=== PATIENT | male | born 1960 | race Hispanic/Latino ===

== ENCOUNTER 2018-09-14 08:47 | Outpatient (CLI) | payer BC ==
[2018-09-14] MEDS ORDERED: Iopamidol 370 76% 100 ML VIAL ONE (10:43)
--- NOTE | 2018-09-14 11:59 | CT ---
CT CHEST, ABDOMEN AND PELVIS WITH IV CONTRAST: 09/14/18 Multiple axial tomograms were obtained through the chest, abdomen and pelvis with IV enhancement. Ora l contrast was administered. INDICATIONS: History of rectal cancer. Elevated CEA. COMPARISON: Comparison made to CT abdomen and pelvis 07/17/13. CORRELATION: Correlation made to PET scan 07/23/13. CT CHEST: There is a small calcified nodule in the anterior right upper lobe, mid lung field. No other pulmonar y mass or nodule. No infiltrate. No effusion. Mediastinum unremarkable. Thyroid unremarkable. No axi llary adenopathy. Osseous structures unremarkable. IMPRESSION: Unremarkable chest CT. CT ABDOMEN AND PELVIS: There is heterogeneity within the left lobe of the liver which is suspicious. A discrete or defined m ass is not identified; however, there is rather diffuse heterogeneity with areas of low attenuation i n the left lobe concerning for metastatic involvement. Since this could potentially represent areas of fatty sparing, suggest further evaluation with MRI abdomen with attention to the liver. Spleen and pancreas unremarkable. Adrenal glands normal. Kidneys unremarkable. A cyst from the superior left kidney is stable from the prior exam. Kidneys oth erwise unremarkable. Review of the small bowel reveals a loop of abnormal small bowel in the lower abdomen located in the upper pelvis region. This is a focally dilated/patulous loop of small bowel measuring up to 5 cm diam eter. There is fecalization of the content within this patulous loop of bowel. The small bowel leadin g into and out of this apparent patulous loop appears normal. There is no evidence of obstruction. Ho wever, this is an abnormal focal loop of small bowel. This was not present on the 2014 exam. There is scattered stool and gas throughout the colon which appears unremarkable. The sigmoid colon i s decompressed. The rectosigmoid appears unremarkable. The prostate is mildly enlarged with prostatic calcification. The urinary bladder is contacted and not well evaluated. Aorta shows atherosclerotic calcification but normal caliber. No evidence of retroperitoneal or para- aortic adenopathy. No evidence of pelvic adenopathy. Osseous structures are unremarkable. IMPRESSION: 1. There is heterogeneity of the left lobe of the liver. A defined mass is not seen; however, th e heterogeneity is concerning given the history of rectal cancer. Recommend further evaluation with M RI abdomen with and without contrast following hepatic protocol. 2. There is an abnormal focal loop of what appears to be patulous small bowel in the lower abdo men/upper pelvis measuring 5 to 6 cm. there is fecalization within this patulous loop of bowel as susan cribed above. There is no evidence of mural thickening or inflammation at this time. POS: ALISIA
== END 2018-09-14 08:48 | disposition home or self-care (01) ==
LOC: CT 08:47
PROVIDERS: ATTEND Internal Medicine Hematology & Oncology
DX: C20 Malignant neoplasm of rectum (principal); K76.89 Other specified diseases of liver
CPT/HCPCS: 71260; 74177; 82565; Q9967

== ENCOUNTER 2018-09-25 12:51 | Outpatient (CLI) | payer BC ==
--- NOTE | 2018-09-25 14:36 | PET ---
PET W CT Skull to Mid Thigh History: Rectal cancer. C 20. Subsequent encounter. Comparison: CT chest, abdomen, and pelvis September 14, 2018 Findings: PET imaging was performed from the skull to the mid thigh after the intravenous administrat ion of 11.6 mCi FDG. Within the left lobe of the liver involving hepatic segments II and III is a mass measuring approxima tely 6 cm in greatest dimension with SUV max 14.36. Within the right lobe of the liver hepatic segment 8 near the dome is a smaller mass measuring 2.5 cm in greatest dimension with SUV max 5.8. Subtle increased FDG avidity distal small bowel near the anastomosis. No evidence for pulmonary hepat ic disease. Lungs are clear. No pneumothorax. No effusion. No cardiomegaly. Simple cyst superior pole left kidney. No hydronephrosis. Noncontrast evaluation of the pancreas and spleen are unremarkable. No acute osseous abnormality. Impression: Multifocal hepatic metastatic disease as described with index lesion measuring up to 6 cm in greatest dimension within segment II/III.
--- NOTE | 2018-09-25 15:43 | MRI ---
MRI Abdomen W WO Con History: Metastasis Comparison: PET CT same day Findings: Within hepatic segment 8 near the dome of the mass measures 3.1 cm in size with central art erial hyperenhancement and washout with central necrosis. Within hepatic segment 2/3 is a mass measuring up to 6 cm in size with fine internal linear enhancement and peripheral enhancement. There is a peripheral halo of increased enhancement. No other foci of abnormal enhancement within the liver. Portal vein is patent. Hepatic arteries paten t. No carrie hepatis adenopathy. No dilated loops of large or small bowel in the upper abdomen. Marrow signal is normal. Spleen and pancreas unremarkable. Superior left renal simple cysts. Aortic contour is nonaneurysmal. No marrow infiltrative process. Impression: 1. Multifocal hepatic masses involving hepatic segments II/III and hepatic segment VIII. Index lesion s are described. Measurements on the MRI are more accurate than the PET/CT. 2. Metastatic disease is felt more likely than hepatocellular carcinoma given the absence of liver ci rrhosis or hepatocellular disease. There are also differing enhancement patterns between the different masses. 3. Multifocal cholangiocarcinoma is also felt less likely given its rarity to be multifocal. 4. Mass within hepatic segment II/III is amenable to percutaneous biopsy.
== END 2018-09-25 12:52 | disposition home or self-care (01) ==
LOC: PET 12:51
PROVIDERS: ATTEND Internal Medicine Hematology & Oncology
DX: C20 Malignant neoplasm of rectum (principal); C78.7 Secondary malignant neoplasm of liver and intrahepatic bile duct; R16.0 Hepatomegaly, not elsewhere classified
CPT/HCPCS: 74183; 78815; 82565; A9552

== ENCOUNTER 2018-10-01 08:16 | Day surgery (SDC) | payer BC ==
[2018-09-28 14:22] VITALS: BMI 31.1
[2018-10-01 08:33] LABS: #Eosinphils 0.3 thou/uL (0.0-0.7); #Lymphocytes 2.4 thou/uL (1.20-3.40); #Monocytes 0.5 thou/uL (0.11-0.59); #Neutrophils 4.6 thou/uL (1.40-6.50); %Basophils 0.2 % (0.0-1.0); %Eosinophils 3.6 % (0.0-10.0); %Monocytes 6.5 % (0.0-10.0); %Neutrophils 58.8 % (42.0-75.0); Hemoglobin 14.4 g/dL (14.0-18.0); Mean Corpuscular HGB CONC 33.1 g/dL (32.0-36.0); Mean Corpuscular Hemoglobin 28.3 pg (27.0-31.0); Mean Corpuscular Volume 85.4 fL (78.0-98.0); Mean Platelet Volume 6.8 fL (7.4-10.4); Platelet Count 284 thou/uL (130-400); Red Blood Cell (RBC) Count 5.08 mill/uL (4.70-6.10); White Blood Cell (WBC) Count 7.8 thou/uL (4.8-10.8)
[2018-10-01 08:36] LABS: INR-International Normal Ratio 0.9; PTT 27.5 SEC (22.9-36.1); Prothrombin Time 11.9 SEC (12.0-14.7)
[2018-10-01 11:30] VITALS: BP 162/90; TEMP 97.5
--- NOTE | 2018-10-01 13:55 | CT ---
EXAM: CT Liver Perc Biopsy PROVIDED CLINICAL HISTORY: Patient with history of colon cancer. Patient has masses within the left hepatic lobe. Biopsy was req uested. COMPARISON: CT abdomen on 09/14/2018 as well as PET/CT examination and MRI of the abdomen on 09/25/2018. TECHNIQUE: The procedure including the risks and complications were explained to the patient, and informed conse nt was obtained. Patient was placed on the CT scan table in the supine position. Limited noncontrasted CT scan was obtained through the liver with grid localizer in place. An area just to th e right of midline at the level of the lower aspect of the sternum was marked. This area was meticulously prepped and draped in usual sterile fashion. Small skin incision was made. A 17-gauge guide needle was advanced followed by noncontrasted axial CT images. This was repeated unt il the tip of the needle was placed at the peripheral margin of the left hepatic lobe hypodense lesion/mass. A single 18-gauge core needle biopsy specimen was obtained utilizing coaxial technique. Initial touch prep results indicated atypical cells. An additional biopsy specimen was not obtained due to bleeding at the site and from the needle. The introducer needle was slightly withdrawn and autologous clot was placed along the tract followed by a Gelfoam pledget. The needle was removed, and hemostasis was achieved with direct pressure. Follow-up CT scan examination does demonstrate small amount of increased density material anterior to the left hepatic lobe at site of biopsy related to a small amount of hemorrhage. Patient's vital signs remained stable during the procedure as well as postprocedure. Patient was transported to radio logy nurses holding area for further monitoring prior to discharge. IMPRESSION: Technically successful CT-guided percutaneous biopsy of a left hepatic lobe mass. Pathology results a re currently pending. Only a single biopsy specimen was obtained.
== END 2018-10-01 14:30 | disposition home or self-care (01) ==
LOC: CT 08:16
PROVIDERS: ATTEND Internal Medicine Hematology & Oncology
PROC: 0FD23ZX Extraction of Left Lobe Liver, Percutaneous Approach, Diagnostic (ICD-10-PCS; principal; 2018-10-01)
DX: C78.7 Secondary malignant neoplasm of liver and intrahepatic bile duct (principal); Z85.048 Personal history of other malignant neoplasm of rectum, rectosigmoid junction, and anus; Z91.041 Radiographic dye allergy status
CPT/HCPCS: 36415; 47000; 77012; 85025; 85610; 85730; 88307; 88333; 88341; 88342

== ENCOUNTER 2018-11-02 10:06 | Day surgery (SDC) | payer BC ==
[2018-11-01 10:52] VITALS: BMI 27.6
[2018-11-02] MEDS ORDERED: Midazolam HCl 2 mg/2 ml Vial ONE (11:26)
[2018-11-02] MEDS ORDERED: Bupivacaine/Epinephrine 0.25% 30 ML VIAL ONE (11:51)
[2018-11-02] MEDS ORDERED: Lidocaine 2% PF 5 ML VIAL ONE (11:51)
[2018-11-02] MEDS ORDERED: Fentanyl 100 MCG/2 ML VIAL ONE (12:01)
--- NOTE | 2018-11-02 13:07 | RAD ---
EXAM: Portable chest PROVIDED CLINICAL HISTORY: Mediport placement COMPARISON: 07/23/2005 FINDINGS: Cardiac and mediastinal silhouette is within normal limits. No focal consolidation, pleural fluid or pneumothorax evident. Interval placement of right IJ implanted port, the tip of which projects in the region of the SVC. IMPRESSION: No evidence for an acute cardiopulmonary process.
[2018-11-02] MEDS ORDERED: PROPOFOL 200 MG/20 ML VIAL ONE (15:46)
[2018-11-02] MEDS ORDERED: Dexamethasone 20 MG/5 ML VIAL ONE (15:46)
[2018-11-02] MEDS ORDERED: Ondansetron PF 4 MG/2 ML Vial ONE (15:46)
--- NOTE | 2018-11-05 10:18 | OP ---
DATE OF PROCEDURE: 11/02/2018 PREOPERATIVE DIAGNOSIS: Metastatic rectal cancer. POSTOPERATIVE DIAGNOSIS: Metastatic rectal cancer. PROCEDURE PERFORMED: Tunneled central line with subcutaneous port (MediPort CT injectable). ANESTHESIA: TIVA, local. ESTIMATED BLOOD LOSS: Minimal. COMPLICATIONS: None. SPECIMEN: None. DESCRIPTION OF PROCEDURE: The patient was taken to the operating room and laid supine on the operating room table after sedation was obtained. Bilateral neck and chest were prepped and draped in a sterile fashion. Local anesthetic was infiltrated over the right internal jugular vein. Internal jugular vein was cannulated using a 22-gauge finder needle, followed by a Seldinger needle. Wire was passed into the superior vena cava under fluoro guidance. A small naomie was made at the wire entrance site. A second 3 smear incisions were made in the right upper chest. Subcutaneous pocket was made below the lower incision. Tubing for the MediPort tunneled from the inferior to superior incision and suture sheath was placed over the wire into the superior vena cava under fluoro guidance. The dilator and wire were removed and the catheter sewn into the sheath as the sheath was peeled away. The tip of the catheter was at the atriocaval junction. MediPort tubing was cut to fit the MediPort at the lower incision, connected to the MediPort, which was sewn into the chest wall in the subcutaneous pocket using Prolene. The MediPort flushed and lubna blood without difficulty. It was flushed with a heparin flush. The wounds were all irrigated and closed using 3-0 Vicryl, 4-0 Monocryl, and Dermabond. The patient was sent to Recovery in stable condition. All instrument counts, needle counts, and lap counts were correct. Job ID: [id number]
== END 2018-11-02 14:05 | disposition home or self-care (01) ==
LOC: SDC 10:06
PROVIDERS: ATTEND Surgery
PROC: 05HM33Z Insertion of Infusion Device into Right Internal Jugular Vein, Percutaneous Approach (ICD-10-PCS; principal; 2018-11-02)
DX: C20 Malignant neoplasm of rectum (principal); Z91.041 Radiographic dye allergy status
CPT/HCPCS: 71045; 76000; C1788; J0690; J1100; J1642; J2001; J2250; J2405; J2704; J3010

== ENCOUNTER 2018-12-19 00:30 | Emergency (ER) | payer BC ==
[2018-12-19 01:54] LABS: #Lymphocytes 0.7 thou/uL (1.20-3.40); #Monocytes 0.5 thou/uL (0.11-0.59); #Neutrophils 7.2 thou/uL (1.40-6.50); %Basophils 0.2 % (0.0-1.0); %Eosinophils 0.2 % (0.0-10.0); %Lymphocytes 8.5 % (21.0-51.0); %Monocytes 5.3 % (0.0-10.0); %Neutrophils 85.8 % (42.0-75.0); Mean Corpuscular HGB CONC 34.8 g/dL (32.0-36.0); Mean Corpuscular Hemoglobin 29.4 pg (27.0-31.0); Mean Corpuscular Volume 84.6 fL (78.0-98.0); Mean Platelet Volume 6.6 fL (7.4-10.4); Platelet Count 177 thou/uL (130-400); RBC Distribution Width 14.5 % (11.5-14.5); Red Blood Cell (RBC) Count 4.74 mill/uL (4.70-6.10); White Blood Cell (WBC) Count 8.4 thou/uL (4.8-10.8)
[2018-12-19 02:16] LABS: ALT (SGPT) 51 U/L (8-55); AST (SGOT) 34 U/L (5-34); Albumin 3.6 g/dL (3.5-5.0); Alkaline Phosphatase 86 U/L (40-150); Anion Gap 12 mmol/L (10-20); BUN (Urea Nitrogen) 16 mg/dL (8.4-25.7); Bilirubin, Total 0.5 mg/dL (0.2-1.2); Calc. Creatinine Clearance 0 mL/min (70-130); Calcium 8.9 mg/dL (7.8-10.44); Carbon Dioxide 21 mmol/L (22-29); Chloride 106 mmol/L (98-107); Estimated GFR-MDRD Greater than 90; Globulin 2.7 g/dL (2.4-3.5); Glucose 138 mg/dL (70-105); Potassium 3.9 mmol/L (3.5-5.1); Protein, Total 6.3 g/dL (6.0-8.3); Sodium 135 mmol/L (136-145)
--- NOTE | 2018-12-23 03:16 | EKG ---
Test Reason : STROKE SYMPTOMS Blood Pressure : / mmHG Vent. Rate : 098 BPM Atrial Rate : 098 BPM P-R Int : 130 ms QRS Dur : 128 ms QT Int : 394 ms P-R-T Axes : 077 035 037 degrees QTc Int : 503 ms Normal sinus rhythm Right bundle branch block Abnormal ECG Confirmed by JOSE ARMANDO ATKINSON DO ([id number]), editorial specialist GLADYS MARTINEZ ([id number] on 12/23/2018 3:15:14 AM Referred By: [place] Confirmed By:JOSE ARMANDO ATKINSON DO
== END 2018-12-19 03:00 | disposition home or self-care (01) ==
LOC: ERS 00:30
DX: G62.9 Polyneuropathy, unspecified (principal); C20 Malignant neoplasm of rectum
CPT/HCPCS: 36415; 80053; 85025; 93005

== ENCOUNTER 2019-01-25 08:54 | Outpatient (CLI) | payer BC ==
--- NOTE | 2019-01-25 12:02 | PET ---
Radionucleotide PET scan with CT attenuation correction HISTORY: Malignant neoplasm of rectum. Secondary malignant neoplasm of liver. Restaging. FINDINGS: Physiologic uptake of radiotracer throughout the enteric system and along each urinary trac t. At the dome of the medial segment left liver lobe, a small hyperdense focus on the nondiagnostic CT a ttenuation correction images is present where a metastatic lesion was present on the prior study. Maximum SUV associated with this area is now 2.9 (previous QCLR 7.1) Within the lateral segment left liver lobe, the heterogeneous slightly hyperdense mass now shows a ma ximum SUV of 3.2 (previously 15.4). No new areas of abnormal uptake are apparent. Liver is diffusely hypodense. Postoperative changes of the colon. Degenerative changes lumbar spine. Calcification throughout the arterial structures. IMPRESSION: Complete response to therapy. No new abnormalities. Atherosclerosis. Hepatic steatosis.
== END 2019-01-25 08:55 | disposition home or self-care (01) ==
LOC: PET 08:54
PROVIDERS: ATTEND Internal Medicine Hematology & Oncology
DX: C20 Malignant neoplasm of rectum (principal); C78.7 Secondary malignant neoplasm of liver and intrahepatic bile duct; I70.90 Unspecified atherosclerosis; K76.0 Fatty (change of) liver, not elsewhere classified
CPT/HCPCS: 78815; A9552

== ENCOUNTER 2019-03-04 13:48 | Inpatient (IN) | payer BC ==
[2019-03-04] MEDS ORDERED: Senokot S 8.6-50 MG TAB PO PRN (14:31)
[2019-03-04] MEDS ORDERED: Acetaminophen 325 MG TAB PO PRN (14:31)
--- NOTE | 2019-03-04 17:52 | HP ---
CHIEF COMPLAINT: Right-sided facial droop. HISTORY OF PRESENT ILLNESS: The patient is a very pleasant 58-year-old male with a history of rectal carcinoma with also mets to the liver, who is currently on chemotherapy, who presented to the hospital with complaints of right-sided facial droop. The patient stated that he went to work this morning, was feeling fine; however, at work, his right hand felt kind of strange. At this time, his right face started having some droopy like effect, so he came into the ER. Initially, he came on to the outside ER and then was transferred here for further evaluation. I was told by the ER doctor that his NIH at the outside ER was 3. At this time, he was not given any tPA and also the patient refused. He was transferred here for further evaluation. PAST MEDICAL HISTORY: He has a history of rectal cancer with mets to the liver. He is currently on therapy. PAST SURGICAL HISTORY: He has had a colostomy with reversal. SOCIAL HISTORY: He was a smoker and a drinker. He quit about 5 years ago. FAMILY HISTORY: History of high blood pressure. ALLERGIES: HE IS ALLERGIC TO IODINE AND LATEX. MEDICATIONS: He only takes an aspirin a day. PHYSICAL EXAMINATION: VITAL SIGNS: Temperature of 98.2, blood pressure 129/92, pulse 88, 99% on room air. GENERAL: He is awake, alert, and oriented x3. Does not appear in distress. HEENT: Normocephalic and atraumatic. The patient does have a facial rash, which is a maculopapular rash on his facial area. He does have a droopiness of his right lower side of the face, the chin area. Tongue is midline. He does have some dark appearing blotches on the tongue. CV: S1 and S2 present. Regular. LUNGS: Clear to auscultation. No rhonchi or wheezes noted. ABDOMEN: Soft and nontender. Bowel sounds are present x2. NEUROLOGIC: He does have some pronator drift on his right arm. Strength; 4/5 in the right, 5/5 in the left upper extremity. Lower extremity, 5/5 in bilateral lower extremity. His cranial nerves are intact. [id number] and [id number] intact. LABORATORY RESULTS: WBCs of 2.6, hemoglobin of 13.2, hematocrit of 43.6, platelets of 143. Chemistry; sodium of 139, potassium of 3.9, BUN of 10, creatinine of 1.11, glucose of 145. LFTs mildly elevated. Troponin x1 is negative. He did have a CT head, which was essentially normal. ASSESSMENT AND PLAN: The patient is a 58-year-old male who presents to the hospital with a facial droop. 1. Stroke. We will get an MRI of brain. We will get an echo. We will get also carotid Dopplers. The patient is on aspirin. We will continue the aspirin, add Plavix. Neurology has been consulted. We will also add a statin. We will continue to monitor the patient. 2. Rectal cancer. The patient is suppose to get chemotherapy next week. 3. Deep venous thrombosis prophylaxis. We will put the patient on SCDs. We will monitor the patient overnight on the monitor. According to him, he has no history of strokes or heart attacks in the past. We will get PT and OT to evaluate him and go from there. Job ID: [id number]
[2019-03-04 18:34] VITALS: BMI 25.4
[2019-03-04] MEDS ORDERED: Atorvastatin Calcium 40 MG TAB PO SCH (21:00)
--- NOTE | 2019-03-04 21:27 | ULT ---
EXAM: Carotid vascular duplex with color and spectral Doppler imaging: HISTORY: TIA COMPARISON: None FINDINGS: Minimal visible plaque Right ICA: PSV: 46 cm/s EDV: 16 cm/s ICA/CCA ratio: 0.5 Left ICA: PSV: 48 cm/s EDV: 18 cm/s ICA/CCA ratio: 0.6 Antegrade flow is seen in both vertebral arteries.. IMPRESSION: No evidence for hemodynamically significant ICA stenosis Evidence for visible plaque, evidence for carotid artery vascular disease.
[2019-03-05 05:59] LABS: #Eosinphils 0.1 thou/uL (0.0-0.7); #Lymphocytes 1.5 thou/uL (1.20-3.40); #Monocytes 0.3 thou/uL (0.11-0.59); #Neutrophils 1.6 thou/uL (1.40-6.50); %Basophils 1.3 % (0.0-1.0); %Eosinophils 2.7 % (0.0-10.0); %Lymphocytes 42.7 % (21.0-51.0); %Monocytes 7.4 % (0.0-10.0); %Neutrophils 45.9 % (42.0-75.0); Hemoglobin 13.2 g/dL (14.0-18.0); Mean Corpuscular HGB CONC 34.4 g/dL (32.0-36.0); Mean Corpuscular Hemoglobin 31.6 pg (27.0-31.0); Mean Corpuscular Volume 91.7 fL (78.0-98.0); Mean Platelet Volume 8.8 fL (7.4-10.4); Platelet Count 121 thou/uL (130-400); RBC Distribution Width 15.9 % (11.5-14.5); Red Blood Cell (RBC) Count 4.19 mill/uL (4.70-6.10); White Blood Cell (WBC) Count 3.5 thou/uL (4.8-10.8)
[2019-03-05 06:25] LABS: Anion Gap 14 mmol/L (10-20); BUN (Urea Nitrogen) 11 mg/dL (8.4-25.7); Calc. Creatinine Clearance 99 mL/min (70-130); Calcium 8.9 mg/dL (7.8-10.44); Carbon Dioxide 23 mmol/L (22-29); Cardiac Risk 4.1 (Less than 4.5); Chloride 108 mmol/L (98-107); Cholesterol 145 mg/dl (< 200 Desired); Estimated GFR-MDRD 88; Glucose 102 mg/dL (70-105); HDL Cholesterol 35 mg/dL (>60 Neg Risk); LDL Cholesterol, Calculated 70 mg/dL; Potassium 4.1 mmol/L (3.5-5.1); Sodium 141 mmol/L (136-145); Triglycerides 199 mg/dL (Less than 150)
[2019-03-05] MEDS: Aspirin 81 mg Enteric Coated Tablet PO SCH (08:54)
[2019-03-05] MEDS: Clopidogrel Bisulfate 75 MG TAB PO SCH (08:54)
--- NOTE | 2019-03-05 11:03 | MRI ---
Exam: Brain MRI without contrast HISTORY: Stroke COMPARISON: None FINDINGS: Calvarial marrow signal intensity: Appropriate T1 signal Gradient echo sequence: No hemorrhage Brain parenchyma: No mass, mass effect or midline shift. Brain volume, age-appropriate. Cortical choi-white matter differentiation: Preserved Restricted diffusion: Restricted diffusion involving the left external capsule, posterior limb of the left internal capsule, left lentiform nucleus, and left patiño radiata. White matter signal intensities:There is a T2 and FLAIR hyperintensity correspond to be areas of rest ricted diffusion as described above. Sinuses: Adequate aeration of the paranasal sinuses and mastoid air cells. IMPRESSION: Acute infarct involving the left deep choi matter structures and periventricular white matter as desc ribed above.
--- NOTE | 2019-03-05 14:33 | PDOC.HOSPP ---
- Subjective Encounter Date: 03/05/19 Encounter Time: 14:31 Subjective: Mr. Kaiser was seen today in follow-up of right sided weakness and facial droop. He does not have any new complaints, continues weakness in his right arm , and facial droop. - Objective Vital Signs & Weight: Vital Signs (12 hours) Temp Pulse Pulse Pulse Resp BP BP 03/05/19 11:50 98.6 F 56 L 16 03/05/19 09:03 53 L 149/89 H 03/05/19 08:58 53 L 66 149/89 H 135/99 H 03/05/19 07:46 98.7 F 52 L 16 03/05/19 04:00 97.8 F 55 L 16 BP Pulse Ox 03/05/19 11:50 121/78 99 03/05/19 09:03 03/05/19 08:58 03/05/19 07:46 131/83 99 03/05/19 04:00 124/83 100 Weight Admit Weight 172 lb 8 oz Weight 172 lb 8 oz Result Diagrams: 03/05/19 04:34 03/05/19 04:34 Hospitalist ROS - Medication Medications: Active Medications Generic Name Dose Route Start Last Admin Trade Name Freq PRN Reason Stop Dose Admin Aspirin 81 mg 03/05/19 09:00 03/05/19 08:54 Ecotrin PO 81 mg DAILY KRISHAN Administration Atorvastatin Calcium 40 mg 03/04/19 21:00 03/04/19 21:20 Lipitor PO 40 mg HS KRISHAN Administration Clopidogrel Bisulfate 75 mg 03/05/19 09:00 03/05/19 08:54 Plavix PO 75 mg DAILY KRISHAN Administration - Exam Eye: PERRL Heart: RRR, no murmur, no gallops, no rubs, normal peripheral pulses Respiratory: CTAB, no wheezes, no rales, no ronchi, normal chest expansion, no tachypnea, normal percussion Gastrointestinal: soft, non-tender, non-distended, normal bowel sounds, no palpable masses, no hepatomegaly, no splenomegaly Extremities: no cyanosis, no edema Hosp A/P (1) Acute CVA (cerebrovascular accident) Code(s): I63.9 - CEREBRAL INFARCTION, UNSPECIFIED Status: Acute (2) Malignant neoplasm of rectum Code(s): C20 - MALIGNANT NEOPLASM OF RECTUM Status: Chronic - Plan * Acute CVA- MRI results noted * Will continue aspirin and Plavix, and Lipitor * Carotid doppler is negative * Await Echo results and Neurology input * Will Observe overnight
[2019-03-05] MEDS ORDERED: Prevnar 13-Val Conj/PF 0.5 ML SYRINGE IM ONE (21:00)
[2019-03-05] MEDS ORDERED: Atorvastatin Calcium 20 MG TAB PO SCH (21:00)
[2019-03-05] MEDS ORDERED: FLU VACC QS2019-20(6MOS UP)/PF 60 MCG/0.5 ML SYRINGE IM ONE (21:00)
--- NOTE | 2019-03-06 00:02 | CON ---
DATE OF CONSULTATION: 03/05/2019 CONSULTING PHYSICIAN: Hospitalist Service. IMPRESSION: 1. Lacunar stroke with mild right-sided weakness. 2. Aspirin failure. PLAN: 1. Add Plavix 75 mg per day. 2. Add Lipitor 20 mg per day. 3. The patient can be discharged home if his echocardiogram is normal. HISTORY OF PRESENT ILLNESS: Mr. Kaiser is a 58-year-old man, who presented with right-sided weakness. Initial CT scan was negative. His MRI confirmed a left deep white matter area of acute infarction. His carotid ultrasound shows no evidence of stenosis. His prior EKGs showed normal sinus rhythm. His vital signs have been stable since admission, he has been afebrile. His lipid ratio was 4.1. His symptoms are improving. He has no difficulty with swallowing. He is able to walk independently. He denies any past history of stroke symptoms. PAST MEDICAL HISTORY: Rectal cancer. ALLERGIES: IODINE. SOCIAL HISTORY: No tobacco or alcohol use. FAMILY HISTORY: Noncontributory. REVIEW OF SYSTEMS: Ten-system review of systems is otherwise negative. PHYSICAL EXAMINATION: GENERAL: He is a healthy-appearing middle-aged man, in no acute distress. VITAL SIGNS: Have been stable. He is afebrile. HEENT: Pupils are equal and reactive. Conjunctivae are clear. Oropharynx is clear. Cranium, normocephalic and atraumatic. NECK: Supple. No lymphadenopathy. EXTREMITIES: No cyanosis, clubbing, or edema. NEUROLOGIC: He is alert and cooperative. His speech is fluent and clear. Attention and concentration are appropriate. He has a right facial droop. He has some subtle right upper extremity weakness. He has no tremor or dysmetria. Sensations intact bilaterally. He can walk independently. LABORATORY DATA: EKG shows normal sinus rhythm. SUMMARY: A middle-aged man with lacunar infarction, some mild neurologic deficits. I would add Lipitor and Plavix. He can be followed up as an outpatient. Job ID: [id number]
[2019-03-06 09:14] LABS: #Eosinphils 0.1 thou/uL (0.0-0.7); #Lymphocytes 1.4 thou/uL (1.20-3.40); #Monocytes 0.5 thou/uL (0.11-0.59); %Basophils 0.9 % (0.0-1.0); %Eosinophils 2.3 % (0.0-10.0); %Lymphocytes 35.2 % (21.0-51.0); %Monocytes 11.7 % (0.0-10.0); %Neutrophils 49.9 % (42.0-75.0); Hemoglobin 13.7 g/dL (14.0-18.0); Mean Corpuscular HGB CONC 34.1 g/dL (32.0-36.0); Mean Corpuscular Hemoglobin 31.5 pg (27.0-31.0); Mean Corpuscular Volume 92.5 fL (78.0-98.0); Mean Platelet Volume 7.9 fL (7.4-10.4); Platelet Count 141 thou/uL (130-400); RBC Distribution Width 15.9 % (11.5-14.5); Red Blood Cell (RBC) Count 4.36 mill/uL (4.70-6.10)
[2019-03-06] MEDS: Aspirin 81 mg Enteric Coated Tablet PO SCH (09:20)
[2019-03-06] MEDS: Clopidogrel Bisulfate 75 MG TAB PO SCH (09:20)
[2019-03-06 09:31] LABS: Anion Gap 9 mmol/L (10-20); BUN (Urea Nitrogen) 8 mg/dL (8.4-25.7); Calc. Creatinine Clearance 98 mL/min (70-130); Carbon Dioxide 26 mmol/L (22-29); Chloride 107 mmol/L (98-107); Estimated GFR-MDRD 87; Glucose 115 mg/dL (70-105); Potassium 4.3 mmol/L (3.5-5.1); Sodium 138 mmol/L (136-145)
--- NOTE | 2019-03-06 09:41 | PDOC.HOSPP ---
- Subjective Encounter Date: 03/06/19 Encounter Time: 09:00 Subjective: Mr. Kaiser is a 58 y/o male with a history of rectal cancer and liver metastasis who presented yesterday to the ER with right sided arm weakness and facial droop. Patient has been observed overnight for acute CVA. He is doing very well this morning. No events overnight. He reports much improvement in right hand strength and movement. ECHO was done this morning. Patient denies chest pain, dyspnea, pain, or changes in appetite. - Objective Vital Signs & Weight: Vital Signs (12 hours) Temp Pulse Resp BP Pulse Ox 03/06/19 07:39 97.8 F 56 L 16 134/88 99 03/06/19 03:43 98.5 F 62 16 118/76 99 03/05/19 23:28 98.6 F 52 L 16 149/88 H 100 Weight Admit Weight 78.245 kg Weight 78.245 kg I&O: 03/05/19 03/06/19 03/07/19 06:59 06:59 06:59 Intake Total 680 Balance 680 Result Diagrams: 03/06/19 09:03 03/06/19 09:03 Hospitalist ROS - Review of Systems Respiratory: denies: shortness of breath Cardiovascular: denies: chest pain Gastrointestinal: denies: abdominal pain Musculoskeletal: denies: arm pain Neurological: reports: weakness (Slight weakness in right upper extremity that is much improved from yesterday. Facial droop on right side has also improved.) . denies: change in speech - Medication Medications: Active Medications Generic Name Dose Route Start Last Admin Trade Name Yanickq PRN Reason Stop Dose Admin Aspirin 81 mg 03/05/19 09:00 03/06/19 09:20 Ecotrin PO 81 mg DAILY KRISHAN Administration Atorvastatin Calcium 20 mg 03/05/19 21:00 03/05/19 21:12 Lipitor PO 20 mg HS KRISHAN Administration Clopidogrel Bisulfate 75 mg 03/05/19 09:00 03/06/19 09:20 Plavix PO 75 mg DAILY KRISHAN Administration - Exam General Appearance: awake alert Heart: RRR, no murmur Respiratory: CTAB, no wheezes Extremities: no cyanosis, no clubbing Skin: normal turgor, no rashes Neurological: facial droop (Slight on right side - improved.), hemiplegia ( Slight weakness on right side - improved. Mapping Pilot strength on right 4/5 vs. left 5/ 5.) Musculoskeletal: normal tone Psychiatric: A&O x 3 Hosp A/P - Plan Mr. Kaiser is a 58 y/o male with a history of rectal cancer who presented yesterday to the ER with right sided arm weakness and facial droop. Patient has been observed overnight for acute CVA. Acute CVA -Aspirin, Plavix, and Lipitor medications added -ECHO done this AM - Will check report once posted -If ECHO is negative, patient can be discharged home - Plan f/u for Physical Therapy course Rectal Cancer -On chemotherapy.
--- NOTE | 2019-03-06 11:37 | PDOC.HOSPP ---
- Subjective Encounter Date: 03/06/19 Encounter Time: 11:35 Subjective: Mr. Kaiser was seen today in follow-up of acute CVA. He feels stronger in his right arm, and the facial droop as improved. No new complaints. - Objective Vital Signs & Weight: Vital Signs (12 hours) Temp Pulse Resp BP Pulse Ox 03/06/19 11:30 98.3 F 58 L 16 144/90 H 100 03/06/19 08:00 99 03/06/19 07:39 97.8 F 56 L 16 134/88 99 03/06/19 03:43 98.5 F 62 16 118/76 99 Weight Admit Weight 172 lb 8 oz Weight 172 lb 8 oz I&O: 03/05/19 03/06/19 03/07/19 06:59 06:59 06:59 Intake Total 680 Balance 680 Result Diagrams: 03/06/19 09:03 03/06/19 09:03 Hospitalist ROS - Medication Medications: Active Medications Generic Name Dose Route Start Last Admin Trade Name Parag PRN Reason Stop Dose Admin Aspirin 81 mg 03/05/19 09:00 03/06/19 09:20 Ecotrin PO 81 mg DAILY KRISHAN Administration Atorvastatin Calcium 20 mg 03/05/19 21:00 03/05/19 21:12 Lipitor PO 20 mg HS KRISHAN Administration Clopidogrel Bisulfate 75 mg 03/05/19 09:00 03/06/19 09:20 Plavix PO 75 mg DAILY KRISHAN Administration - Exam Eye: PERRL Heart: RRR, no murmur, no gallops, no rubs, normal peripheral pulses Respiratory: CTAB, no wheezes, no rales, no ronchi, normal chest expansion Gastrointestinal: soft, non-tender, non-distended, normal bowel sounds, no palpable masses, no hepatomegaly, no splenomegaly Extremities: no cyanosis, no edema Neurological: facial droop (mild right facial droop and mild weakness in the right upper extremity) Hosp A/P (1) Acute CVA (cerebrovascular accident) Code(s): I63.9 - CEREBRAL INFARCTION, UNSPECIFIED Status: Acute (2) Malignant neoplasm of rectum Code(s): C20 - MALIGNANT NEOPLASM OF RECTUM Status: Chronic - Plan * Acute CVA- MRI results noted * Will continue aspirin and Plavix, and Lipitor * Neurology recommendations noted * Await Echo results * Home today if OK
[2019-03-06 15:50] VITALS: BP 127/88; TEMP 98.2
--- NOTE | 2019-03-07 04:46 | DIS ---
DATE OF ADMISSION: 03/04/2019 DATE OF DISCHARGE: 03/06/2019 DISCHARGE DISPOSITION: Home. PRIMARY DISCHARGE DIAGNOSES: 1. Acute left periventricular stroke. 2. Rectal cancer with liver metastasis. DISCHARGE MEDICATIONS: 1. Plavix 75 mg daily. 2. Lipitor 20 mg at bedtime. 3. Aspirin 81 mg a day. PROCEDURES DONE DURING ADMISSION: The patient had bilateral carotid Dopplers, which were negative for any flow-limiting disease. The patient had a MRI of the brain, which demonstrated an acute infarct involving the deep left choi matter. The patient had an echocardiogram in which the EF was estimated at 55% to 60%. There was some E to A flow reversal suggestive of diastolic dysfunction and mild mitral regurgitation, as well as mild tricuspid regurgitation. CODE STATUS: Full code. ALLERGIES: IODINE, LATEX, AND RUBBER. HOSPITAL COURSE: Mr. Kaiser is a pleasant 58-year-old gentleman, who was admitted to the hospital after he developed a right facial droop as well as weakness in the right upper extremity. He was evaluated and found to have suffered a left cortical stroke. He was started on Plavix in addition to aspirin. He had already been on a statin and his LDL was within range at level of 70. His symptoms actually began to improve during the course of his hospital stay, where he was actually close to baseline by the time he was discharged. It is also noted that the patient did refuse tPA. However, again, his symptoms improved close to baseline. He is being discharged home in stable condition. He will proceed with outpatient physical therapy and close followup with his primary care physician. Job ID: [id number]
== END 2019-03-06 18:15 | disposition home or self-care (01) | DRG 65 ==
LOC: ERS 13:48 → 2SE 18:08
PROVIDERS: ADMIT Internal Medicine; ATTEND Internal Medicine
PROC: 3E02340 Introduction of Influenza Vaccine into Muscle, Percutaneous Approach (ICD-10-PCS; principal; 2019-03-05)
PROC: 3E0234Z Introduction of Serum, Toxoid and Vaccine into Muscle, Percutaneous Approach (ICD-10-PCS; 2019-03-05)
DX: I63.81 Other cerebral infarction due to occlusion or stenosis of small artery (principal); C20 Malignant neoplasm of rectum; C78.7 Secondary malignant neoplasm of liver and intrahepatic bile duct; G81.91 Hemiplegia, unspecified affecting right dominant side; Z23 Encounter for immunization; R29.703 NIHSS score 3; Z53.20 Procedure and treatment not carried out because of patient's decision for unspecified reasons; R40.2362 Coma scale, best motor response, obeys commands, at arrival to emergency department; R40.2142 Coma scale, eyes open, spontaneous, at arrival to emergency department; R40.2252 Coma scale, best verbal response, oriented, at arrival to emergency department; R29.810 Facial weakness; Z93.3 Colostomy status; Z91.041 Radiographic dye allergy status; Z79.82 Long term (current) use of aspirin; Z87.891 Personal history of nicotine dependence; Z91.040 Latex allergy status
CPT/HCPCS: 36415; 70551; 80048; 80061; 85025; 90471; 90670; 93306; 93880; G0009

== ENCOUNTER 2019-04-12 08:40 | Outpatient (CLI) | payer BC ==
--- NOTE | 2019-04-12 11:56 | CT ---
EXAM: CT chest, abdomen, and pelvis with IV contrast: HISTORY: Rectal cancer. Patient is currently on chemotherapy. Follow-up evaluation. COMPARISON: PET/CT scan on 01/25/[address] chest, abdomen, and pelvis on 09/14/2018. FINDINGS: CT THORAX: Lungs: There are patchy parenchymal airspace densities seen involving the anterior aspect right lower lobe as well as posterolateral aspect right lower lobe with minimal groundglass densities seen within the right middle lobe likely corresponding to pneumonitis. Follow-up to resolution is recommen ded. No pulmonary nodule or mass is identified. Pleura: No pleural effusion. Lymph nodes: No lymphadenopathy. Mediastinum: A right internal jugular vein Mediport catheter is again noted in place with tip in the SVC. Mediastinal structures otherwise have normal appearance without lymphadenopathy. Small amount of contrast is seen in the esophagus which may relate to gastroesophageal reflux. Chest wall: No abnormalities. CT ABDOMEN AND PELVIS: Liver: There is a calcification seen in the medial aspect dome of the liver in region of prior lesion seen on study of 09/14/2018. Previously noted mass lesion in this region is not delineated likely due to interval treatment. The calcification now seen on today's exam was also seen on the recent PET /CT exam. The hypodense mass in the lateral segment left hepatic lobe is not appreciated on today's exam. No new lesions are seen within the liver. Gallbladder: Decompressed. Pancreas: Within normal limits. Spleen: Within normal limits. Adrenal glands: Within normal limits. Kidneys: Left superior pole renal cyst with subcentimeter too small to characterize evidence lesion i nferior pole left kidney are again noted. Nonobstructing calculus inferior pole right kidney is again seen. Urinary Bladder: Mostly decompressed but grossly normal in appearance. Reproductive organs: Within normal limits for patient's age. Bowel: There is a patulous loop of small bowel in the posterior aspect of the pelvis with associated suture material seen related to prior postsurgical changes. Loops of small bowel are normal in caliber. Small amount of retained fecal material is seen in the colon. Adenopathy:No lymphadenopathy within the abdomen or pelvis. Peritoneum: No free fluid or fluid collection is seen. No free intraperitoneal gas is identified. Abdominal wall: No abnormalities seen. Osseous structures: Few sclerotic lesions in the proximal left proximal femur as well as in the L1 ve rtebral body which demonstrate characteristics most compatible with bone islands. Degenerative changes are seen in the spine. No suspicious lytic or sclerotic lesions are seen. IMPRESSION: 1. Focal areas of pneumonitis in the right middle and right lower lobes. Follow-up to resolution is r ecommended. 2. No CT evidence of metastatic disease. 3. Calcification in the region of previously noted lesion at the dome of the liver, and the lesion wi thin the lateral segment left hepatic lobe is not visualized. These findings are likely related to interval treatment. 4. Nonobstructing right renal calculus and left renal cyst.
== END 2019-04-12 08:41 | disposition home or self-care (01) ==
LOC: CT 08:40
PROVIDERS: ATTEND Internal Medicine Hematology & Oncology
DX: C20 Malignant neoplasm of rectum (principal); C78.7 Secondary malignant neoplasm of liver and intrahepatic bile duct; N20.0 Calculus of kidney; N28.1 Cyst of kidney, acquired; J18.9 Pneumonia, unspecified organism
CPT/HCPCS: 71260; 74177; 82565

== ENCOUNTER 2020-07-10 08:50 | Outpatient (CLI) | payer BC ==
[2020-07-10] MEDS ORDERED: Iopamidol 370 76% 100 ML VIAL ONE (14:38)
== END 2020-07-10 08:51 | disposition home or self-care (01) ==
LOC: CT 08:50
PROVIDERS: ATTEND Internal Medicine Hematology & Oncology
DX: C20 Malignant neoplasm of rectum (principal); C78.7 Secondary malignant neoplasm of liver and intrahepatic bile duct; N20.0 Calculus of kidney; N28.89 Other specified disorders of kidney and ureter; N28.1 Cyst of kidney, acquired; Z85.048 Personal history of other malignant neoplasm of rectum, rectosigmoid junction, and anus
CPT/HCPCS: 71260; 74177; 82565; Q9967

== ENCOUNTER 2020-11-17 10:32 | Outpatient (CLI) | payer BC, MEDICAID | END 2020-11-17 10:33 | disposition home or self-care (01) | LOC: PET 10:32 | PROVIDERS: ATTEND Internal Medicine Hematology & Oncology | DX: C20 Malignant neoplasm of rectum (principal); C78.7 Secondary malignant neoplasm of liver and intrahepatic bile duct; R97.0 Elevated carcinoembryonic antigen [CEA] | CPT/HCPCS: 78815; A9552 ==

== ENCOUNTER 2021-01-06 18:10 | Inpatient (IN) | payer BC, MEDICAID ==
[2021-01-06 18:41] LABS: #Basophils 0.1 thou/uL (0.0-0.2); #Eosinphils 0.1 thou/uL (0.0-0.7); #Lymphocytes 1.2 thou/uL (1.20-3.40); #Monocytes 0.2 thou/uL (0.11-0.59); #Neutrophils 3.7 thou/uL (1.40-6.50); %Basophils 1.7 % (0.0-1.0); %Eosinophils 1.6 % (0.0-10.0); %Lymphocytes 22.8 % (21.0-51.0); %Monocytes 4.3 % (0.0-10.0); %Neutrophils 69.6 % (42.0-75.0); Hemoglobin 14.8 g/dL (14.0-18.0); Mean Corpuscular HGB CONC 31.6 g/dL (32.0-36.0); Mean Corpuscular Hemoglobin 27.1 pg (27.0-31.0); Mean Corpuscular Volume 85.6 fL (78.0-98.0); Mean Platelet Volume 7.3 fL (7.4-10.4); Platelet Count 208 thou/uL (130-400); Red Blood Cell (RBC) Count 5.47 mill/uL (4.70-6.10); White Blood Cell (WBC) Count 5.3 thou/uL (4.8-10.8)
[2021-01-06 19:07] LABS: ALT (SGPT) 56 U/L (8-55); AST (SGOT) 48 U/L (5-34); Albumin 3.2 g/dL (3.4-4.8); Alkaline Phosphatase 100 U/L (40-110); Anion Gap 10 mmol/L (10-20); BUN (Urea Nitrogen) 18 mg/dL (8.4-25.7); Bilirubin, Total 1.5 mg/dL (0.2-1.2); Calc. Creatinine Clearance 0 mL/min (70-130); Calcium 8.6 mg/dL (7.8-10.44); Carbon Dioxide 26 mmol/L (23-31); Chloride 103 mmol/L (98-107); Globulin 2.9 g/dL (2.4-3.5); Glucose 120 mg/dL (80-115); Potassium 4.5 mmol/L (3.5-5.1); Protein, Total 6.1 g/dL (5.8-8.1); Sodium 134 mmol/L (136-145)
[2021-01-06] MEDS ORDERED: Boostrix 0.5 ML (Tdap) VIAL ONE (19:12)
[2021-01-06] MEDS ORDERED: Acetaminophen 500 MG TAB ONE (19:12)
[2021-01-06 20:15] LABS: Bilirubin Negative (Negative); Blood, Urine Trace (Negative); Glucose, Urine (Dipstick) Negative (Negative); Ketone, Urine Negative (Negative); Leukocyte Negative (Negative); Nitrite Negative (Negative); Protein, Urine (Dipstick) Negative (Neg-Trace); Urobilinogen 0.2 mg/dL (Less than 2); pH, Urine 6.5 (5.0-9.0)
[2021-01-06 20:19] LABS: Clarity Clear (Clear); Specific Gravity, Urine 1.024 (1.002-1.036)
[2021-01-06 20:21] LABS: RBC/HPF 0-3 HPF (0-3); Squamous Epithelial 0-3 HPF (0-3); WBC/HPF 0-3 HPF (0-3)
[2021-01-06 23:39] LABS: SARS-CoV-2 NAA Rapid Test Not Detected (NotDetected)
[2021-01-07] MEDS ORDERED: Ondansetron PF 4 MG/2 ML Vial IVP PRN (02:11)
[2021-01-07] MEDS ORDERED: Acetaminophen 325 MG TAB PO PRN (02:11)
[2021-01-07 02:31] VITALS: BMI 23.7
[2021-01-07] MEDS: Sodium Chloride 0.9% 1,000 ML IV SCH ×3 (02:38→20:06)
[2021-01-07 02:51] LABS: Hemoglobin A1c 6.1 % (4.0-6.0)
[2021-01-07 05:47] LABS: #Basophils 0.1 thou/uL (0.0-0.2); #Eosinphils 0.3 thou/uL (0.0-0.7); #Lymphocytes 1.9 thou/uL (1.20-3.40); #Monocytes 0.3 thou/uL (0.11-0.59); #Neutrophils 2.6 thou/uL (1.40-6.50); %Basophils 1.5 % (0.0-1.0); %Eosinophils 5.7 % (0.0-10.0); %Lymphocytes 36.3 % (21.0-51.0); %Monocytes 5.4 % (0.0-10.0); Hemoglobin 13.8 g/dL (14.0-18.0); Mean Corpuscular HGB CONC 33.1 g/dL (32.0-36.0); Mean Corpuscular Hemoglobin 28.3 pg (27.0-31.0); Mean Corpuscular Volume 85.5 fL (78.0-98.0); Mean Platelet Volume 7.6 fL (7.4-10.4); Platelet Count 190 thou/uL (130-400); RBC Distribution Width 14.6 % (11.5-14.5); Red Blood Cell (RBC) Count 4.87 mill/uL (4.70-6.10); White Blood Cell (WBC) Count 5.1 thou/uL (4.8-10.8)
[2021-01-07 06:12] LABS: Phosphorus 2.7 mg/dL (2.3-4.7)
[2021-01-07 06:13] LABS: Troponin I Less than 0.010 ng/mL (< 0.028)
[2021-01-07 06:19] LABS: ALT (SGPT) 49 U/L (8-55); AST (SGOT) 42 U/L (5-34); Albumin 2.8 g/dL (3.4-4.8); Alkaline Phosphatase 85 U/L (40-110); Anion Gap 9 mmol/L (10-20); BUN (Urea Nitrogen) 15 mg/dL (8.4-25.7); Bilirubin, Total 1.3 mg/dL (0.2-1.2); Calc. Creatinine Clearance 102 mL/min (70-130); Calcium 8.1 mg/dL (7.8-10.44); Carbon Dioxide 26 mmol/L (23-31); Cardiac Risk 1.9 (Less than 4.5); Chloride 107 mmol/L (98-107); Cholesterol 65 mg/dl (< 200 Desired); Globulin 2.5 g/dL (2.4-3.5); Glucose 97 mg/dL (80-115); HDL Cholesterol 34 mg/dL (>60 Neg Risk); LDL Cholesterol, Calculated 19 mg/dL; Magnesium 1.9 mg/dL (1.6-2.6); Potassium 3.7 mmol/L (3.5-5.1); Protein, Total 5.3 g/dL (5.8-8.1); Sodium 138 mmol/L (136-145); Triglycerides 61 mg/dL (Less than 150)
[2021-01-07] MEDS ORDERED: Loperamide HCl 2 MG CAP PO SCH ×2 (06:45→12:24)
[2021-01-07] MEDS ORDERED: Loperamide HCl 2 MG CAP ONE ×2 (09:02→12:27)
[2021-01-07] MEDS ORDERED: Famotidine/PF 20 mg/2ml Vial ONE (09:02)
[2021-01-07] MEDS: Famotidine/PF 20 mg/2ml Vial SLOW IVP SCH ×2 (09:23→20:01)
[2021-01-07] MEDS ORDERED: Bacitracin 1 PK ONE ×2 (13:09)
[2021-01-07] MEDS ORDERED: Diphenoxylate HCl/Atropine Tablet PO PRN (17:33)
[2021-01-07] MEDS: Enoxaparin Sodium 40 MG/0.4 ML SYRINGE SC SCH (19:59)
[2021-01-07] MEDS: Atorvastatin Calcium 20 MG TAB PO SCH (20:01)
[2021-01-07] MEDS ORDERED: Gabapentin 300 MG CAP PO SCH (21:00)
[2021-01-07] MEDS: Gabapentin 300 MG CAP PO SCH (22:13)
[2021-01-08] MEDS: Sodium Chloride 0.9% 1,000 ML IV SCH ×2 (04:16→17:15)
[2021-01-08 04:52] LABS: #Basophils 0.1 thou/uL (0.0-0.2); #Eosinphils 0.5 thou/uL (0.0-0.7); #Lymphocytes 2.4 thou/uL (1.20-3.40); #Monocytes 0.4 thou/uL (0.11-0.59); %Basophils 1.6 % (0.0-1.0); %Eosinophils 9.5 % (0.0-10.0); %Lymphocytes 44.4 % (21.0-51.0); %Monocytes 6.9 % (0.0-10.0); %Neutrophils 37.6 % (42.0-75.0); Hemoglobin 12.7 g/dL (14.0-18.0); Mean Corpuscular HGB CONC 32.7 g/dL (32.0-36.0); Mean Corpuscular Hemoglobin 28.1 pg (27.0-31.0); Mean Corpuscular Volume 85.8 fL (78.0-98.0); Mean Platelet Volume 7.8 fL (7.4-10.4); Platelet Count 186 thou/uL (130-400); RBC Distribution Width 14.6 % (11.5-14.5); Red Blood Cell (RBC) Count 4.52 mill/uL (4.70-6.10); White Blood Cell (WBC) Count 5.3 thou/uL (4.8-10.8)
[2021-01-08 05:06] LABS: ALT (SGPT) 42 U/L (8-55); AST (SGOT) 36 U/L (5-34); Albumin 2.6 g/dL (3.4-4.8); Alkaline Phosphatase 86 U/L (40-110); Anion Gap 10 mmol/L (10-20); BUN (Urea Nitrogen) 14 mg/dL (8.4-25.7); Bilirubin, Total 1.1 mg/dL (0.2-1.2); Calc. Creatinine Clearance 90 mL/min (70-130); Calcium 7.9 mg/dL (7.8-10.44); Carbon Dioxide 25 mmol/L (23-31); Chloride 109 mmol/L (98-107); Globulin 2.4 g/dL (2.4-3.5); Glucose 102 mg/dL (80-115); Potassium 3.7 mmol/L (3.5-5.1); Sodium 140 mmol/L (136-145)
[2021-01-08] MEDS ORDERED: Prevnar 13-Val Conj/PF 0.5 ML SYRINGE IM ONE (09:00)
[2021-01-08] MEDS ORDERED: Gabapentin 300 MG CAP PO SCH (09:00)
[2021-01-08] MEDS ORDERED: Clopidogrel Bisulfate 75 MG TAB PO SCH (09:00)
[2021-01-08] MEDS: Famotidine/PF 20 mg/2ml Vial SLOW IVP SCH ×2 (09:09→21:02)
[2021-01-08] MEDS: Aspirin Chewable 81 MG TAB PO SCH (09:09)
[2021-01-08] MEDS: Gabapentin 300 MG CAP PO SCH ×2 (09:09→21:02)
[2021-01-08] MEDS: Enoxaparin Sodium 40 MG/0.4 ML SYRINGE SC SCH (21:02)
[2021-01-08] MEDS: Atorvastatin Calcium 20 MG TAB PO SCH (21:02)
[2021-01-09] MEDS: Sodium Chloride 0.9% 1,000 ML IV SCH ×2 (03:50→15:19)
[2021-01-09 04:56] LABS: #Basophils 0.1 thou/uL (0.0-0.2); #Eosinphils 0.5 thou/uL (0.0-0.7); #Monocytes 0.3 thou/uL (0.11-0.59); #Neutrophils 2.2 thou/uL (1.40-6.50); %Basophils 1.6 % (0.0-1.0); %Eosinophils 9.5 % (0.0-10.0); %Lymphocytes 39.9 % (21.0-51.0); %Monocytes 5.6 % (0.0-10.0); %Neutrophils 43.5 % (42.0-75.0); Hemoglobin 12.4 g/dL (14.0-18.0); Mean Corpuscular HGB CONC 33.3 g/dL (32.0-36.0); Mean Corpuscular Hemoglobin 28.6 pg (27.0-31.0); Mean Platelet Volume 7.6 fL (7.4-10.4); Platelet Count 174 thou/uL (130-400); RBC Distribution Width 14.3 % (11.5-14.5); Red Blood Cell (RBC) Count 4.32 mill/uL (4.70-6.10); White Blood Cell (WBC) Count 5.1 thou/uL (4.8-10.8)
[2021-01-09 05:19] LABS: Anion Gap 6 mmol/L (10-20); BUN (Urea Nitrogen) 14 mg/dL (8.4-25.7); Calc. Creatinine Clearance 102 mL/min (70-130); Carbon Dioxide 27 mmol/L (23-31); Chloride 108 mmol/L (98-107); Glucose 107 mg/dL (80-115); Potassium 3.7 mmol/L (3.5-5.1); Sodium 137 mmol/L (136-145)
[2021-01-09] MEDS: Famotidine/PF 20 mg/2ml Vial SLOW IVP SCH ×2 (08:33→20:26)
[2021-01-09] MEDS: Aspirin Chewable 81 MG TAB PO SCH (08:33)
[2021-01-09] MEDS: Gabapentin 300 MG CAP PO SCH ×2 (08:33→20:26)
[2021-01-09] MEDS: Atorvastatin Calcium 20 MG TAB PO SCH (20:26)
[2021-01-09] MEDS: Enoxaparin Sodium 40 MG/0.4 ML SYRINGE SC SCH (20:26)
[2021-01-10] MEDS: Sodium Chloride 0.9% 1,000 ML IV SCH (01:31)
[2021-01-10 07:38] VITALS: BP 105/65; TEMP 97.4
[2021-01-10] MEDS: Gabapentin 300 MG CAP PO SCH (08:30)
[2021-01-10] MEDS: Aspirin Chewable 81 MG TAB PO SCH (08:30)
[2021-01-10] MEDS: Famotidine/PF 20 mg/2ml Vial SLOW IVP SCH (08:30)
== END 2021-01-10 10:00 | disposition home or self-care (01) | DRG 312 ==
LOC: ERS 18:10 → ERHOLD 21:55 → 2NO 01-07 13:11 → OBSVTOIN 01-08 15:23
PROVIDERS: ADMIT Internal Medicine; ATTEND Hospitalist
DX: R55 Syncope and collapse (principal); E46 Unspecified protein-calorie malnutrition; C78.7 Secondary malignant neoplasm of liver and intrahepatic bile duct; I69.954 Hemiplegia and hemiparesis following unspecified cerebrovascular disease affecting left non-dominant side; I95.2 Hypotension due to drugs; T45.1X5A Adverse effect of antineoplastic and immunosuppressive drugs, initial encounter; E86.0 Dehydration; Z20.822 Contact with and (suspected) exposure to COVID-19; G93.89 Other specified disorders of brain; G62.9 Polyneuropathy, unspecified; Z68.23 Body mass index [BMI] 23.0-23.9, adult; Z93.3 Colostomy status; Z85.038 Personal history of other malignant neoplasm of large intestine; Z91.041 Radiographic dye allergy status; Z91.040 Latex allergy status; Z79.82 Long term (current) use of aspirin; Z79.899 Other long term (current) drug therapy
CPT/HCPCS: 36415; 70450; 70551; 76700; 80048; 80053; 80061; 81003; 82274; 82550; 83036; 83630; 83735; 84100; 84443; 84484; 85025; 87045; 87046; 87427; 87449; 90471; 90715; 93005; 93306; 93880; 95712; 95819; 95957; 96372; 96376; G0378; J1650; J7050; S0028; U0002

== ENCOUNTER 2021-03-09 08:20 | Outpatient (CLI) | payer BC, MEDICAID | END 2021-03-09 08:21 | disposition home or self-care (01) | LOC: CT 08:20 | PROVIDERS: ATTEND Surgery Surgical Oncology | DX: C20 Malignant neoplasm of rectum (principal); C19 Malignant neoplasm of rectosigmoid junction; C78.7 Secondary malignant neoplasm of liver and intrahepatic bile duct; N28.1 Cyst of kidney, acquired; N20.0 Calculus of kidney; N28.9 Disorder of kidney and ureter, unspecified; K76.0 Fatty (change of) liver, not elsewhere classified; Z98.890 Other specified postprocedural states | CPT/HCPCS: 71260; 74178 ==

== ENCOUNTER 2023-05-25 12:12 | Outpatient (CLI) | payer MEDICARE, MEDICAID | END 2023-05-25 12:13 | disposition home or self-care (01) | LOC: CT 12:12 | PROVIDERS: ATTEND Internal Medicine Hematology & Oncology | DX: C20 Malignant neoplasm of rectum (principal); C78.7 Secondary malignant neoplasm of liver and intrahepatic bile duct; R97.0 Elevated carcinoembryonic antigen [CEA]; R16.0 Hepatomegaly, not elsewhere classified | CPT/HCPCS: 71260; 74177 ==

== ENCOUNTER 2024-01-22 10:28 | Observation (INO) | payer MEDICARE, MEDICAID ==
[2024-01-22 11:03] LABS: #Basophils 0.05 10x3/uL (0.0-0.2); %Basophils 0.9 % (0.0-1.0); %Lymphocytes 27.3 % (21.0-51.0); %Monocytes 5.6 % (0.0-10.0); Hemoglobin 14.1 g/dL (14.0-18.0); Mean Corpuscular Hemoglobin 27.6 pg (27.0-31.0); Mean Corpuscular Volume 86.3 fL (78.0-98.0); Mean Platelet Volume 9.2 fL (7.4-10.4); Platelet Count 239 10x3/uL (130-400); RBC Distribution Width 13.2 % (11.5-14.5)
[2024-01-22 11:32] LABS: Troponin I Less than 0.010 ng/mL (< 0.028)
[2024-01-22 11:46] LABS: ALT (SGPT) 16 U/L (8-55); AST (SGOT) 17 U/L (5-34); Albumin 3.9 g/dL (3.4-4.8); Alkaline Phosphatase 67 U/L (40-110); Anion Gap 14 mmol/L (10-20); BUN (Urea Nitrogen) 14 mg/dL (8.4-25.7); Bilirubin, Total 0.7 mg/dL (0.2-1.2); Calc. Creatinine Clearance 0 mL/min (70-130); Calcium 9.5 mg/dL (7.8-10.44); Carbon Dioxide 24 mmol/L (23-31); Chloride 106 mmol/L (98-107); Estimated GFR 83; Globulin 3.2 g/dL (2.4-3.5); Glucose 133 mg/dL (80-115); Protein, Total 7.1 g/dL (5.8-8.1); Sodium 140 mmol/L (136-145)
[2024-01-22] MEDS ORDERED: Nitroglycerin 0.4 MG TAB 1 EACH ONE (12:30)
[2024-01-22] MEDS ORDERED: Aspirin Chewable 81 MG TAB ONE (12:30)
[2024-01-22 13:20] LABS: Lipase 28 U/L (8-78); Magnesium 2.1 mg/dL (1.6-2.6)
[2024-01-22] MEDS ORDERED: Ondansetron ODT 4 MG TAB PO PRN (13:49)
[2024-01-22] MEDS ORDERED: Ondansetron PF 4 MG/2 ML Vial IVP PRN (13:49)
[2024-01-22] MEDS ORDERED: Senokot S 8.6-50 MG TAB PO PRN (13:49)
[2024-01-22] MEDS ORDERED: Nitroglycerin 0.4 MG TAB (25 Tab Bottle) SL PRN (13:49)
[2024-01-22 16:02] LABS: Troponin I Less than 0.010 ng/mL (< 0.028)
[2024-01-22 18:43] VITALS: BMI 23.8
[2024-01-22] MEDS: Pantoprazole DR 40 MG TAB PO SCH (19:18)
[2024-01-22 19:52] LABS: Troponin I Less than 0.010 ng/mL (< 0.028)
[2024-01-22] MEDS: Calcium Carbonate 500 MG ChewTAB PO PRN (20:32)
[2024-01-23 04:48] LABS: #Basophils 0.08 10x3/uL (0.0-0.2); %Basophils 1.1 % (0.0-1.0); %Eosinophils 4.6 % (0.0-10.0); %Lymphocytes 24.3 % (21.0-51.0); %Monocytes 7.3 % (0.0-10.0); %Neutrophils 62.4 % (42.0-75.0); Hematocrit 39.8 % (42.0-52.0); Hemoglobin 12.7 g/dL (14.0-18.0); Mean Corpuscular HGB CONC 31.9 g/dL (32.0-36.0); Mean Corpuscular Hemoglobin 27.5 pg (27.0-31.0); Mean Corpuscular Volume 86.3 fL (78.0-98.0); Mean Platelet Volume 9.8 fL (7.4-10.4); Platelet Count 231 10x3/uL (130-400); RBC Distribution Width 13.2 % (11.5-14.5); Red Blood Cell (RBC) Count 4.61 mill/uL (4.70-6.10)
[2024-01-23 06:04] LABS: Anion Gap 11 mmol/L (10-20); BUN (Urea Nitrogen) 17 mg/dL (8.4-25.7); Calc. Creatinine Clearance 68 mL/min (70-130); Calcium 9.3 mg/dL (7.8-10.44); Carbon Dioxide 26 mmol/L (23-31); Cardiac Risk 3.8 (Less than 4.5); Chloride 107 mmol/L (98-107); Cholesterol 150 mg/dl (< 200 Desired); Estimated GFR 74; Glucose 86 mg/dL (80-115); HDL Cholesterol 39 mg/dL (>60 Neg Risk); LDL Cholesterol, Calculated 88 mg/dL; Potassium 3.7 mmol/L (3.5-5.1); Sodium 140 mmol/L (136-145); Triglycerides 117 mg/dL (Less than 150)
[2024-01-23] MEDS ORDERED: Regadenoson 0.4 MG/5 ML SYRINGE ONE (11:25)
[2024-01-23 13:13] VITALS: BP 144/88; TEMP 98.2
[2024-01-23] MEDS: Aspirin 81 mg Enteric Coated Tablet PO SCH (14:23)
[2024-01-23] MEDS: Enoxaparin 40 MG (0.4 mL) SYRINGE SC SCH (14:23)
[2024-01-23] MEDS: Pantoprazole DR 40 MG TAB PO SCH (14:23)
[2024-01-24] MEDS ORDERED: FLU (Fluad Triv) TS24-25 (65UP)/MF59C/PF 45 MCG/0.5 ML Syringe IM ONE (09:00)
== END 2024-01-23 16:32 | disposition home or self-care (01) ==
LOC: ERS 10:28 → 2SW 14:32 → ERHOLD 14:32 → 2SW 18:41
PROVIDERS: ADMIT Internal Medicine; ATTEND Family Medicine
DX: R07.89 Other chest pain (principal); C18.9 Malignant neoplasm of colon, unspecified; C78.7 Secondary malignant neoplasm of liver and intrahepatic bile duct; E78.5 Hyperlipidemia, unspecified; G62.9 Polyneuropathy, unspecified; I69.398 Other sequelae of cerebral infarction; Z79.82 Long term (current) use of aspirin; Z87.891 Personal history of nicotine dependence; Z79.899 Other long term (current) drug therapy; Z91.041 Radiographic dye allergy status; Z91.040 Latex allergy status
CPT/HCPCS: 70450; 71045; 78452; 80048; 80061; 82378; 83690; 83735; 83880; 84484 ×2; 85025; 93005; 93017; 96372; 99285; A9500; G0378 ×3; J1650; J2785 ×2; 36415; 80053; 84443